=== PATIENT | female | born 1980 | race Hispanic/Latino ===

== ENCOUNTER → 2019-01-30 | Day surgery (SDC) | payer BC ==
[~2019-01-30] MED LIST: BENTYL10 MG PO; BENTYL20 MG PO; FENTANYL CITRATE/PF 100MCG/2 ML INJ ONE; FLAGYL250 MG; FOLIC ACID1 MG PO; HYOSCYAMINE 0.125 MG TAB ONE; KETAMINE HCL INJ 50 MG/ML 10 ML VIAL ONE; METHOTREXATE2.5 MG PO; MIDAZOLAM HCL 2 MG/2 ML VIAL ONE; MOTRIN200 MG PO; MYRBETRIQ25 MG PO; NEXIUM40 MG PO; PANTOPRAZOLE SO40 MG PO; PROPOFOL IV EMULSION 10 MG/ML 20 ML VIAL ONE; TYLENOL # 31 EA PO; VITAMIN D10000 UNIT PO; ZOFRAN8 MG PO
[2019-01-30 18:54] VITALS: BP 120/81
--- NOTE | 2019-01-31 02:17 | Operative Report ---
DATE OF PROCEDURE: 01/30/2019 SURGEON: Palomo Leigh MD PROCEDURE: EGD with biopsies and colonoscopy. INDICATIONS FOR EGD: Upper abdominal pain, nausea, bloating. INDICATIONS FOR COLONOSCOPY: Surveillance colonoscopy, personal history of colon polyps, bright red blood per rectum. MEDICATIONS: The patient was done under MAC. Please see anesthesiologist's note. PROCEDURE IN DETAIL: With the patient in left lateral decubitus position, the flexible fiberoptic Olympus gastroscope was introduced into the esophagus under direct visualization without any difficulty. There was some patchy erythema noted in the distal esophagus. The scope was then advanced with ease into the stomach. Mucosa overlying the antrum and the body revealed some patchy erythema and low-grade edema and biopsies were obtained and sent to stain for H. pylori. Pylorus was of normal contour and shape. It was intubated with ease and the scope was advanced all the way to the second portion of the duodenum. Biopsies were obtained from the second portion of the duodenum as well as the duodenal bulb to rule out sprue. An approximately 1 cm sessile polypoid lesion was noted in the proximal second portion that was separate from the ampulla and that was biopsied. The scope was then withdrawn back into the stomach and retroflexed and mucosa overlying the fundus and cardia appeared to be within normal limits. The scope was then straightened out. It was subsequently withdrawn. The patient tolerated the procedure well. IMPRESSION: 1. Distal esophagitis. 2. Gastritis, biopsied. Biopsies sent to stain for Helicobacter pylori. 3. Rule out sprue. 4. Approximately 1 cm sessile polypoid lesion in proximal second portion of the duodenum, separate from ampulla biopsied. PLAN: Follow up histology. Increase Nexium to 40 mg one p.o. a.c. b.i.d. The patient was then turned around and after adequate lubrication of the anal canal, a flexible fiberoptic Olympus colonoscope was inserted into the rectum with ease and advanced all the way to the cecum. The scope was then withdrawn slowly. Whatever was visualized and mucosa overlying the cecum, ascending colon, transverse colon, descending, sigmoid, and rectum were grossly appeared to be within normal limits. There were some retained stools in the colon, but visualization was fair. The scope was then retroflexed into the distal rectum and small internal hemorrhoids were noted, none of which was actively bleeding. The scope was then straightened out. It was subsequently withdrawn. The patient tolerated procedure well. IMPRESSION: Internal hemorrhoids, none actively bleeding. PLAN: Initiate high-fiber low-fat diet. Initiate high-fiber supplement. Visbiome one p.o. b.i.d. The patient might benefit from a followup colonoscopy in 5 years. Palomo Leigh MD [facility] [place]/MODL /[id number] cc: Anibal Keating DO
--- OUTSIDE RECORDS SUMMARY | 2019-02-01 11:38 | XMS REPORT ---
Author Author [facility] Address Unknown Phone Unavailable Care Team Providers Care Bankruptcy Attorney Name Role Phone Unavailable Unavailable Payers Payer Name Policy Type Policy Number Effective Date Expiration Date Problems This patient has no known problems. Allergies, Adverse Reactions, Alerts Allergy Name Allergy Type Status Severity Reaction(s) Onset Date Inactive Date Treating Clinician Comments No Known Allergies DA Active U 2017-04-25 00:00:00 Medications This patient has no known medications. Results Test Description Test Time Test Comments Text Results Atomic Results Result Comments - CT ABD PELVIS W/CONT 2019-01-13 21:29:00 Name: HILARIO COLLAZO [facility] : 1980 Age/S: 38 / F [address] [place] [address] Unit #: [id number] Loc: [place] [address] Phys: Felecia Drew NP Acct: [id number] Dis Date: Status: REG ER PHONE #: [phone] Exam Date: 01/13/2019 210 FAX #: [phone] Reason: Lower abd tenderness EXAMS: CPT CODE: [id number] CT ABD PELVIS W/CONT 05233 Clinical Indication: Lower abd tenderness Comparison: CT abdomen pelvis 10/17/2008 TECHNIQUE: Helical imaging was performed after injection of IV contrast, from the lung base through the symphysis with multiplanar reformations obtained. IV CONTRAST: 100 mL of Isovue-300 GI CONTRAST: Oral contrast was administered. DLP: 415 mGy-cm FINDINGS: CT ABDOMEN AND PELVIS WITH CONTRAST: LUNG BASE: The lung bases are clear. LIVER: The liver parenchyma is normal in appearance without masses or intrahepatic biliary ductal dilatation. The portal vein is normal in caliber. BILIARY TREE: The common bile duct is normal in caliber without evidence of filling defects. GALLBLADDER: The gallbladder has been surgically resected. PANCREAS: The pancreas is unremarkable. The pancreatic duct is normal in caliber. SPLEEN: The spleen is normal in size and there are no parenchymal abnormalities. ADRENALS: The right adrenal gland is unremarkable. The left adrenal gland is unremarkable. KIDNEYS: The kidneys demonstrates normal contrast enhancement. There are no masses. There is no evidence of renal or ureteral calculi. There is no evidence of hydronephrosis. BOWEL: The visualized portion of the esophagus is unremarkable. The stomach is unremarkable. The small bowel is normal in caliber and there is no evidence of masses or obstruction. The colon is normal in caliber without any masses. APPENDIX: The appendix is nonvisualized. PAGE 1 Signed Report (CONTINUED) Name: HILARIO COLLAZO [facility] : 1980 Age/S: 38 / F [address] [place] [address] Unit #: [id number] Loc: [place] [address] Phys: Felecia Drew NP Acct: [id number] Dis Date: Status: REG ER PHONE #: [phone] Exam Date: 01/13/20192100 FAX #: [phone] Reason: Lower abd tenderness EXAMS: CPT CODE: [id number] CT ABD PELVIS W/CONT 29166 <Continued> PELVIS: There are no pelvic masses. The urinary bladder is unremarkable. The uterus and ovaries are not visualized. PERITONEUM: There is no evidence for free intraperitoneal fluid or air. SOFT TISSUES: The soft tissues are unremarkable. There is no evidence of masses or hernias. LYMPH NODES: There is no evidence of mesenteric, retroperitoneal, or inguinal lymphadenopathy. VASCULATURE: The abdominal aorta is normal in caliber. The branches of the abdominal aorta are widely patent. MUSCULOSKELETAL: The visualized bony skeleton is unremarkable. IMPRESSION: 1. No acute findings in the abdomen and pelvis. 2. Cholecystectomy. 3. Hysterectomy. SL: BOBBY at 2121 Reported and signed by: Viktor Murguia M.D. CC: John Keating DO; Felecia Drew NP Technologist:Magalie Olguin RT(R) CTDI: DLP: Trnscb Date/Time: 01/13/2019 (2128) t.LUIS AR.LNV Orig Print D/T: S: 01/13/2019 (2131) PAGE 2 Signed Report COMPREHENSIVE METABOLIC PANEL 2019-01-13 21:10:00 SODIUM (test code=NA) 140 mEq/L 134-147 POTASSIUM (test code=K) 3.9 mEq/L 3.4-5.0 CHLORIDE (test code=CL) 110 mEq/L 100-108 CARBON DIOXIDE (test code=CO2) 26 mEq/L 21-33 ANION GAP (test code=GAP) 8 0-20 GLUCOSE (test code=GLU) 86 mg/dL 70-110 BLOOD UREA NITROGEN (test code=BUN) 9 mg/dL 7-18 GLOMERULAR FILTRATION RATE (test code=GFR) 111.9 105-110 Units of measure=ml/min/1.73 m2 CREATININE (test code=CREAT) 0.6 mg/dL 0.6-1.3 TOTAL PROTEIN (test code=PROT) 7.4 g/dL 6.4-8.2 ALBUMIN (test code=ALB) 3.70 g/dL 3.4-5.0 CALCIUM (test code=CA) 8.7 mg/dL 8.0-10.5 BILIRUBIN TOTAL (test code=BILT) 0.50 mg/dL 0.0-1.0 SGOT/AST (test code=AST) 16 IUnit/L 15-37 SGPT/ALT (test code=ALT) 32 IUnit/L 15-65 ALKALINE PHOSPHATASE TOTAL (test code=ALKP) 76 IUnit/L 20-125 [id number] 21:10:00* Test Item Value Reference Range Comments LIPASE (test code=LIP) 102 IUnit/L 73-393 COMPREHENSIVE METABOLIC [id number] 21:05:00* Test Item Value Reference Range Comments SODIUM (test code=NA) 140 mEq/L 134-147 POTASSIUM (test code=K) 3.9 mEq/L 3.4-5.0 CHLORIDE (test code=CL) 110 mEq/L 100-108 CARBON DIOXIDE (test code=CO2) 26 mEq/L 21-33 ANION GAP (test code=GAP) 8 0-20 GLUCOSE (test code=GLU) 86 mg/dL 70-110 BLOOD UREA NITROGEN (test code=BUN) 9 mg/dL 7-18 GLOMERULAR FILTRATION RATE (test code=GFR) 105-110 CREATININE (test code=CREAT) mg/dL 0.6-1.3 TOTAL PROTEIN (test code=PROT) g/dL 6.4-8.2 ALBUMIN (test code=ALB) g/dL 3.4-5.0 CALCIUM (test code=CA) 8.7 mg/dL 8.0-10.5 BILIRUBIN TOTAL (test code=BILT) mg/dL 0.0-1.0 SGOT/AST (test code=AST) IUnit/L 15-37 SGPT/ALT (test code=ALT) IUnit/L 15-65 ALKALINE PHOSPHATASE TOTAL (test code=ALKP) IUnit/L 20-125 [id number] 21:05:00* Test Item Value Reference Range Comments LIPASE (test code=LIP) 102 IUnit/L 73-393 CBC W/AUTO [id number] 21:04:00* Test Item Value Reference Range Comments WHITE BLOOD CELL (test code=WBC) 7.65 x10 3/uL 4.5-11.0 RED BLOOD CELL (test code=RBC) 3.95 x10 6/uL 3.54-5.02 HEMOGLOBIN (test code=HGB) 12.7 g/dL 11.0-15.0 HEMATOCRIT (test code=HCT) 38.8 % 33.0-45.0 MEAN CELL VOLUME (test code=MCV) 98.2 fL 81.0-99.0 MEAN CELL HGB (test code=MCH) 32.2 pg 27.0-33.0 MEAN CELL HGB CONCETRATION (test code=MCHC) 32.7 g/dL 33.0-37.0 RED CELL DISTRIBUTION WIDTH CV (test code=RDW) 13.8 % 11.5-14.5 RED CELL DISTRIBUTION WIDTH SD (test code=RDW-SD) 49.0 fL 37.0-54.0 PLATELET COUNT (test code=PLT) 312 x10 3/uL 150-400 MEAN PLATELET VOLUME (test code=MPV) 10.3 fL 7.0-9.0 NEUTROPHIL % (test code=NT%) 68.8 % 56.0-77.0 IMMATURE GRANULOCYTE % (test code=IG%) 0.4 % 0.0-2.0 LYMPHOCYTE % (test code=LY%) 20.9 % 14.0-32.0 MONOCYTE % (test code=MO%) 8.0 % 4.8-9.0 EOSINOPHIL % (test code=EO%) 1.6 % 0.3-3.7 BASOPHIL % (test code=BA%) 0.3 % 0.0-2.0 NUCLEATED RBC % (test code=NRBC%) 0.0 % 0-0 NEUTROPHIL # (test code=NT#) 5.27 x10 3/uL 2.0-7.6 IMMATURE GRANULOCYTE # (test code=IG#) 0.03 x10 3/uL 0.00-0.03 LYMPHOCYTE # (test code=LY#) 1.60 x10 3/uL 1.0-3.8 MONOCYTE # (test code=MO#) 0.61 x10 3/uL 0.1-0.8 EOSINOPHIL # (test code=EO#) 0.12 x10 3/uL 0.0-0.2 BASOPHIL # (test code=BA#) 0.02 x10 3/uL 0.0-0.2 NUCLEATED RBC # (test code=NRBC#) 0.00 x10 3/uL 0.0-0.1 MANUAL DIFF REQUIRED (test code=MDIFF) NO URINALYSIS [id number] 19:04:00* Test Item Value Reference Range Comments UA COLOR (test code=COLU) YELLOW YEL/STRAW UA APPEARANCE (test code=APPU) CLEAR CLEAR UA GLUCOSE DIPSTICK (test code=DGLUU) NEGATIVE NEGATIVE UA BILIRUBIN DIPSTICK (test code=BILU) NEGATIVE NEGATIVE UA KETONE DIPSTICK (test code=KETU) NEGATIVE NEGATIVE UA SPECIFIC GRAVITY (test code=SGU) 1.013 1.005-1.030 UA BLOOD DIPSTICK (test code=MIN) NEGATIVE NEGATIVE UA PH DIPSTICK (test code=ESTRELLA) 8.0 5.0-7.0 UA PROTEIN DIPSTICK (test code=PROU) NEGATIVE NEGATIVE UA UROBILINIOGEN DIPSTICK (test code=URO) 0.2 mg/dL 0.2-1.0 UA NITRITE DIPSTICK (test code=LYLY) NEGATIVE NEGATIVE UA LEUKOCYTE ESTERASE DIPSTICK (test code=LEUU) NEGATIVE NEGATIVE UA RBC (test code=RBCU) 11-20 RBC/HPF 0-3 UA WBC NO REFLEX (test code=WBCUCL) 0-3 WBC/HPF 0-3 UA BACTERIA (test code=BACU) NONE SEEN /HPF NONE SEEN UA SQUAMOUS CELLS (test code=SQU) 0-5 /HPF NONE SEEN UA MUCUS (test code=MUCU) TRACE /LPF NONE SEEN COMMENTS: Clean Catch
--- OUTSIDE RECORDS SUMMARY | 2019-02-01 11:38 | XMS REPORT | Clinical Summary ---
Author Author [facility] Address Unknown Phone Unavailable Care Team Providers Care Distiller Name Role Phone Clinic, [facility] PCP Allergies No Known Allergies Medications End Date Status Medication Sig Dispensed Refills Start Date Active ibuprofen (ADVIL,MOTRIN) Take 800 mg 0 800 MG tablet by mouth. Active bimatoprost (LATISSE) 0 0.03 % ophthalmic 9 solution Active ergocalciferol (VITAMIN Take 50,000 0 D2) 50,000 unit capsule Units by mouth once a week. Active mirabegron 25 mg tablet Take 1 tablet 30 tablet 11 extended release 24 (25 mg total) 9 hrIndications: OAB by mouth (overactive bladder) daily. Active folic acid (FOLVITE) 1 MG Take by 0 tablet mouth. 9 Active methotrexate 2.5 MG 0 tablet 9 Active Problems Problem Noted Date OAB (overactive bladder) 07/20/2018 CINDA (stress urinary incontinence, female) 07/20/2018 Encounters Care Team Description Date Type Specialty Lenora Carbone MD OAB (overactive bladder) (Primary Dx); CINDA (stress urinary incontinence, female) 10/22/2018 Office Visit Urology Lenora Carbone MD CINDA (stress urinary incontinence, female); OAB (overactive bladder) 07/20/2018 Office Visit Urology after 01/31/2018 Family History Relation Name Status Comments Father Alive Mother Alive Social History Date Tobacco Use Types Packs/Day Years Used Never Smoker Smokeless Tobacco: Never Used Drinks/Week oz/Week Comments Alcohol Use Yes Alcohol Habits Answer Date Recorded How often do you have a drink containing alcohol? Monthly or less 07/20/2018 How many drinks containing alcohol do you have on 1 or 2 07/20/2018 a typical day when you are drinking? How often do you have six or more drinks on one Less than monthly 07/20/2018 occasion? Physical Activity Answer Date Recorded On average, how many days per week do you engage 5 days 07/20/2018 in moderate to strenuous exercise (like walking fast, running, jogging, dancing, swimming, biking, or other activities that cause a light or heavy sweat)? On average, how many minutes do you engage in 70 min 07/20/2018 exercise at this level? Stress Answer Date Recorded Do you feel stress - tense, restless, nervous, or Only a little 07/20/2018 anxious, or unable to sleep at night because your mind is troubled all the time - these days? Sex Assigned at Date Recorded Not on file Industry Job Start Date Occupation Not on file Not on file Not on file Travel End Travel History Travel Start No recent travel history available. Last Filed Vital Signs Reading Time Taken Comments Vital Sign 113/75 10/22/2018 3:21 PM CDT Blood Pressure 80 10/22/2018 3:21 PM CDT Pulse 36.7 C (98 F) 10/22/2018 3:21 PM CDT Temperature - - Respiratory Rate - - Oxygen Saturation - - Inhaled Oxygen Concentration 79.7 kg (175 lb 12.8 oz) 10/22/2018 3:21 PM CDT Weight 157.5 cm (5' 2") 07/20/2018 1:25 PM CDT Height 32.15 07/20/2018 1:25 PM CDT Body Mass Index Plan of Treatment Care Team Description Date Type Specialty Lenora Carbone MD [address] [place] [id number] [phone] 06/24/2019 Office Visit Urology Health Maintenance Due Date Last Done Comments CERVICAL CANCER SCREENING 2001 INFLUENZA VACCINE 12/10/2018 Procedures Comments Procedure Name Priority Date/Time Associated Diagnosis BLADDER SCAN Routine 07/20/2018 CINDA (stress urinary 2:38 PM CDT incontinence, female) OAB (overactive bladder) URINE CULTURE Routine 07/20/2018 OAB (overactive bladder) 2:15 PM CDT after 01/31/2018 Results * Bladder scan (07/20/2018 2:38 PM CDT) Impressions Performed At 14ml * Urine culture (07/20/2018 2:15 PM CDT) Urine culture SEE NOTE (A) [facility] Comment: DIAGNOSTICS CULTURE, URINE, ROUTINE [place] MICRO NUMBER:[id number] TEST STATUS: FINAL SPECIMEN SOURCE: NOT GIVEN SPECIMEN QUALITY:ADEQUATE RESULT: 10,000-50,000 CFU/mL of Lactobacillus species May represent colonizers from external and internal genitalia. No further testing (including susceptibility) will be performed. COMMENT: Additional organism(s) less than 10,000 CFU/mL isolated. These organisms, commonly found on external and internal genitalia, are considered colonizers. No further testing performed. Specimen Urine Resulting Agency Comment Performing Organization Information: Site ID: [id number] Name: [facility] Address: [address] [place] [id number] Director: April Hay Performing Organization Address City/State/Zipcode Phone Number [place] [address] [place] [address] after 01/31/2018 Insurance Type Payer Benefit Subscriber ID Effective Phone Address Plan / Dates Group PPO BCBS BCBS xxxxxxxxxxxx [id number] CHOICE resent PPO/GALINDO BURDICK PPO Advance Directives For more information, please contact: [phone] Patient Evaluation Advisor Explanation Type Date Recorded Advance Directives, Living Will and Medical Power of Fast Brim Pouncer
== END | disposition home or self-care (01) ==
LOC: OR 13:00
PROVIDERS: ATTEND Internal Medicine Gastroenterology
DX: K29.50 Unspecified chronic gastritis without bleeding (principal); Z86.010 Personal history of colon polyps; K31.7 Polyp of stomach and duodenum; K20.9 Esophagitis, unspecified; K64.8 Other hemorrhoids; M06.9 Rheumatoid arthritis, unspecified; I37.0 Nonrheumatic pulmonary valve stenosis; Z68.32 Body mass index [BMI] 32.0-32.9, adult
CPT/HCPCS: 43239; 45378; J2250; J2704; J3010

== ENCOUNTER → 2021-08-14 | Outpatient (CLI) | payer BC ==
[~2021-08-14] MED LIST changes: -FENTANYL CITRATE/PF 100MCG/2 ML INJ ONE; -HYOSCYAMINE 0.125 MG TAB ONE; -KETAMINE HCL INJ 50 MG/ML 10 ML VIAL ONE; -MIDAZOLAM HCL 2 MG/2 ML VIAL ONE; -PROPOFOL IV EMULSION 10 MG/ML 20 ML VIAL ONE
== END ==
LOC: DX 08:46
PROVIDERS: ATTEND Internal Medicine Gastroenterology
DX: R10.84 Generalized abdominal pain (principal); R93.89 Abnormal findings on diagnostic imaging of other specified body structures; Z20.822 Contact with and (suspected) exposure to COVID-19
CPT/HCPCS: 74250; U0002